=== PATIENT | female | born 1985 | race Two or more races ===

== ENCOUNTER 2020-02-29 13:03 | Emergency (ER) | payer OTHER ==
[~2020-02-29] VITALS: Ht 170.2 cm; Wt 108.9 kg
[2020-02-29 13:09] VITALS: BP 139/89
[2020-02-29 15:16] LABS: BILIRUBIN,URINE Negative (NEGATIVE); BLOOD, URINE Trace-intact Ery/uL (NEGATIVE); COLOR,URINE Yellow (YELLOW); KETONES,URINE Negative (NEGATIVE); LEUKOCYTE ESTERASE ,URINE Moderate (NEGATIVE); NITRITE, URINE Negative (NEGATIVE); PROTEIN,URINE Negative (NEGATIVE); UGLUCOSE Negative (NEGATIVE); UROBILINOGEN,URINE 0.2 EU/dL (0.2)
[2020-02-29 15:22] LABS: APPEARANCE,URINE SLIGHTLY CLOUDY (CLEAR)
[2020-02-29 15:31] LABS: BACTERIA,URINE 2+ /HPF (None Seen); SQUAMOUS EPITHELIAL CELL,UR Few /HPF (None Seen)
--- NOTE | 2020-02-29 15:56 | NUR ---
PT IS MEDICALLY CLEARED FOR BOOKING. PT IS RELEASED UNDER THE CARE OF CES[facility]. PT IS IN STABLE CONDITION. AFTER CARE INSTRUCTION GIVEN WELL RX. PT IS AMBULATORY ON STEADY GAIT W/O ASSIST.
== END 2020-02-29 15:59 ==
LOC: ER 13:06
DX: Z04.89 Encounter for examination and observation for other specified reasons (principal); N39.0 Urinary tract infection, site not specified; R05 Cough; Z20.828 Contact with and (suspected) exposure to other viral communicable diseases
CPT/HCPCS: 81000-TC; 84703-TC; 86403-TC; 87070-TC; 87086-TC